=== PATIENT | female | born 1995 | race African-American/Black ===

== ENCOUNTER 2019-05-05 09:57 | Emergency (ER) | payer SELFPAY ==
[~2019-05-05] VITALS: Ht 157.5 cm; Wt 44.0 kg
[2019-05-05 10:23] VITALS: BP 100/64
[2019-05-05 10:53] LABS: CLARITY URINE CLOUDY (CLEAR); COLOR URINE YELLOW (YELLOW); KETONES URINE NEGATIVE (NEGATIVE); LEUKOCYTE ESTERASE URINE 1+ (NEGATIVE); NITRITE URINE NEGATIVE (NEGATIVE); OCCULT BLOOD URINE NEGATIVE (NEGATIVE); PROTEIN URINE NEGATIVE (NEGATIVE); SPECIFIC GRAVITY URINE 1.025 (1.005-1.030)
== END 2019-05-05 11:50 | disposition home or self-care (01) ==
LOC: ER 09:57
DX: N39.0 Urinary tract infection, site not specified (principal); F12.10 Cannabis abuse, uncomplicated; F17.210 Nicotine dependence, cigarettes, uncomplicated
CPT/HCPCS: 81003; 81025; 87077; 87186; 99283